=== PATIENT | male | born 1990 | race African-American/Black ===

== ENCOUNTER 2023-10-25 23:27 | Emergency (ER) | payer MEDICAID ==
[~2023-10-25] VITALS: Ht 188 cm; Wt 86.2 kg
[2023-10-25 23:35] VITALS: BP_SYST 130; PULSE 82; RESP 16; TEMP 97.7; O2SAT 99
[2023-10-26 00:10] VITALS: BP_SYST 130; PULSE 82; RESP 16; TEMP 97.7; O2SAT 99
== END 2023-10-26 00:10 | disposition home or self-care (01) ==
LOC: SED 23:27
DX: R00.2 Palpitations (principal); F14.929 Cocaine use, unspecified with intoxication, unspecified
CPT/HCPCS: 93005; 99283